=== PATIENT | female | born 1975 | race Hispanic/Latino ===

== ENCOUNTER 2025-01-03 06:26 | Day surgery (SDC) | payer OTHER, SELFPAY ==
[2024-12-29 10:37] VITALS: BMI 27.1
--- NOTE | 2025-01-03 | PATH_ITS ---
[facility] Accession Number: [id number] No. of containers..01 Tissue . 01 Material submitted: . uterus - UTERUS, BILATERAL FALLOPIAN TUBES . 01 Diagnosis: UTERUS AND BILATERAL FALLOPIAN TUBES, SUPRACERVICAL HYSTERECTOMY AND BILATERAL SALPINGECTOMY: Uterus with inactive to weakly proliferative endometrium and adenomyosis. Bilateral fimbriated fallopian tubes with benign paratubal cysts, otherwise unremarkable. Negative for malignancy. [facility] 01/07/2025 0947 Local . 01 Electronically signed: . Alie Aguayo DO, Pathologist NPI- [id number] . 01 Gross description: . Received in formalin with two identifiers and uterus, bilateral fallopian tubes, is a fragmented uterus (57 grams, 9.2 x 7.4 x 3.4 cm in aggregate), two unoriented fimbriated fallopian tubes (5.4 x 0.7 cm and 3.6 x 0.5 cm), with no cervix or additional adnexa. . The serosa is owen to violaceous with hemorrhagic areas up to 1.3 cm in greatest dimension. The presumed endometrium is owen and velvety, averaging less than 0.1 cm thick. The myometrium is owen and trabecular with no nodules or lesions identified. . The tubes have violaceous, smooth serosa with cystic structures up to 0.5 cm in greatest dimension filled with owen, serous fluid. The lumens are stellate and unremarkable. Crust Sorter sections are submitted as follows: . A1: Endometrium. A2: Serosa. A3: Longer fallopian tube. A4: [place] fallopian tube. ([id number]) /MRV 01/05/2025 1257 Local . 01 Pathologist provided ICD-10: N80.9 . 01 CPT . 310891 Specimen Comment: A courtesy copy of this report has been sent to [phone] Performed at: 01 [facility] [address], [place], [place] [id number] MD Anthony Torres MD Phone: [phone]
[2025-01-03] MEDS: LACTATED RINGERS 1,000 ML 42 ML IV ×2 (06:51→09:06)
[2025-01-03] MEDS: ACETAMINOPHEN 325 MG TABLET 975 MG PO (06:52)
[2025-01-03] MEDS: SCOPOLAMINE 1 PATCH TOP (06:52)
[2025-01-03 07:05] VITALS: BP 141/81; PULSE 63; RESP 16; TEMP 36.2; O2SAT 98; BMI 25.0
--- NOTE | 2025-01-03 07:52 | PM.GYNHP.1 ---
History of Present Illness History of Present Illness Reason for admission: vaginal bleeding Narrative: Jennifer Carbajal is a 49 year old female 3 para 2 who presents for a laparoscopic supracervical hysterectomy with bilateral salpingectomy due to menorrhagia, pelvic pain, and a history of endometriosis. [facility] Surgical History (Updated 10/21/17 @ 05:41 by Conversion Provider) History of third molar tooth extraction Status post laparoscopy (08/05/11) Social History household members: spouse Smoking Status: Never smoker alcohol intake: never Meds Home Medications and Allergies Home Medications ?Medication ?Instructions ?Recorded ?Confirmed ?Type No Known Home Medications 11/26/24 11/26/24 History Allergies Allergy/AdvReac Type Severity Reaction Status Date / Time adhesive Allergy rash Verified 01/03/25 06:49 Exam Vital Signs (past 8 hours): - 01/03/25 07:05 Temperature 97.2 F L Pulse Rate 63 Respiratory Rate 16 Blood Pressure 141/81 H Pulse Oximetry 98 Oxygen Delivery Method Room Air Oxygen Delivery Method Room Air Narrative Exam Narrative: HEENT: No thyromegaly, no anterior cervical or supraclavicular lymphadenopathy. Lungs:Clear to auscultation bilaterally, no wheezes. Cardiovascular: Regular rate and rhythm, no murmurs, rubs, or gallops. Abdomen: Well-healed Pfannenstiel scar. No hepatosplenomegaly. No masses palpable. External genitalia: Normal Vagina: Normal Cervix: Normal Bimanual exam: 8 Week size anteverted uterus. Mobile. Extremities: No edema Assessment & Plan Assessment & Plan narrative: Assessment: 49-year-old 3 para 2 with menorrhagia, pelvic pain, and a history of endometriosis Plan: Laparoscopic supracervical hysterectomy with bilateral salpingectomy The risks, benefits, and alternatives to the procedure were explained to the patient. The risks including bleeding, infection, injury to the bowel, bladder, or ureters. She also understands that there is a small chance of an open procedure. She understands all of these risks and agrees to proceed. A full par Q was held and consent form was signed. Time-Based Coding :: [TOTAL MINUTES] spent with patient and on the chart (including review of chart, obtaining history, exam, reviewing outside data, placing orders, documenting exam and treatment plan, and counseling patient) on [DATE].
--- NOTE | 2025-01-03 07:54 | PM.PREOP ---
Pre-operative Note Interval Note History & Physical reviewed/Exam performed by Physician: Yes Changes to H&P: No H&P completed within 30 days and has changed as indicated here:: 01/03/25
[2025-01-03] MEDS: CEFAZOLIN 2 GM/100 ML PREMIX 100 ML IV (08:09)
--- NOTE | 2025-01-03 08:43 | SUR.OPER ---
Lithotomy on padded OR bed. Hubbell Pad Positioner under torso. Head on pillow, arms padded and tucked at sides. purple straps across shoulders. Legs secured in padded yellow fins stirrups.
[2025-01-03] MEDS: BUPIVACAINE 0.5% W/ EPI (PF) 30 ML VIAL INJ (08:53)
[2025-01-03] MEDS: ROPIVACAINE 0.2% PF 2 MG/ML 10ML AMP 20 ML INJ (09:26)
--- NOTE | 2025-01-03 09:46 | PM.GYNOP.1 ---
Operative Date/Time/Diagnoses Date of procedure: 01/03/25 Time of procedure: 09:46 Pre-op diagnosis: Menorrhagia History of endometriosis Pelvic pain Post-op diagnosis: same Procedure & Clinicians Procedure: Procedures Operation Date: 01/03/25 07:45 Actual Procedure Side Surgeon p Laparoscopic Supracervical Hysterectomy with bilateral salpingectomy Not Applicable Yolanda Luther MD Indications: 49 year old with a known h/o endometriosis with pelvic pain and endometriosis Surgeon: Yolanda Luther Stockroom Supervisor: Mariela Engel Anesthesia Type: General and Local Operative Notes Findings: 8 week size anteverted uterus Adhesions of bilateral tubes Left ovary adhesed to the fundus of the uterus Small endometrioma of the left ovary Normal liver and gallbladder Normal appendix Endometrioma of the left ovary Right lower uterine segment fibroid Left colon adhesed to the posterior cervix Closure Type: primary Specimen(s): left tube, right tube and uterus Applied: catheter (Removed at the end of the case) Estimated blood loss (mL): 25 Blood products transfused: none Procedure in detail: The patient was taken to the operating room where she was placed in the dorsal supine position. After adequate general endotracheal anesthesia was achieved, she was placed in the dorsal lithotomy position, and prepped and draped in the usual sterile fashion. A timeout was performed. A bivalve speculum was placed into the vagina and the anterior lip of the cervix grasped with a single-tooth tenaculum. The cervical os was sequentially dilated until the ZUMI uterine manipulator could pass easily into the endometrial cavity. The single-tooth tenaculum was removed from the anterior lip of the cervix, and the bivalve speculum was removed from the vagina. Attention was then turned to the abdomen where 6 mL of half percent Marcaine with epinephrine were injected in the umbilical fold. A 5 mm incision was made. The Verees needle was placed into the peritoneal cavity, and its placement confirmed by aspiration and drop test. The Verees needle was removed. A 5 mm trocar was placed without difficulty. 2 other incisions were made 4 cm lateral to the umbilicus after 5 mL of half percent Marcaine with epinephrine were injected. These were 5 mm incisions. Two 5 mm trocars were placed under direct visualization. Balloons were inflated. The right tube was grasped with an atraumatic grasper. Using the Powerseal, the mesosalpinx was cauterized and cut all the way down to the cornua of the uterus. The cornua of the uterus was then grasped with an atraumatic grasper. The utero-ovarian ligaments were cauterized and cut. The round ligament and broad ligament was cauterized and cut with the Powerseal. Hemostasis was achieved. The bladder flap was created using the Powerseal with cautery and cut nursing home across. The uterine arteries on the right side were extensively cauterized with the Powerseal. On the left side the ovary was found to be adhesed to the tube and to the uterus. This was dissected off using the power seal. A small endometrioma ruptured with the dissection. The area was copiously irrigated. The tube was then grasped and the mesosalpinx was cauterized and cut with a power seal all the way down to the cornua of the uterus. The utero-ovarian vessels were then cauterized and cut. The left colon was stuck to the left cervix. This was dissected off using the blunt probe. The broad ligament and round ligament were cauterized and cut with a power seal. The remainder of the bladder flap was created using the power seal, and the bladder taken down off the lower uterine segment and cervix. Using the L[place], the cervix was amputated from the uterus 2 cm above the uterosacral ligaments, with care to avoid the bowel on the left side. This was all done after the ZUMI uterine manipulator was removed from the uterus and a moistened sponge stick placed into the vagina. There was a small amount of bleeding noted from the posterior edge of the cervix, and this was cauterized for hemostasis with the spatula cautery. The endocervical canal was extensively cauterized with the spatula cautery. 6 mL of half percent Marcaine with epinephrine were injected above the pubic symphysis. A 12 mm trocar was placed under direct visualization. A large Endobag was placed through the suprapubic trocar and the uterus and tubes were placed into the Endobag. The trocar was removed. The edges of the endobag were brought up through the skin. The fascial incision was extended bilaterally with the curved Munguia scissors. The uterus was grasped with Judah. The Zeus was placed into the endobag. The uterus was hand morcellated in approximately 10 pieces. The Endobag was removed from the peritoneal cavity with the Zeus. The fascia on the suprapubic incision was closed with 0 Vicryl in a running fashion. The abdomen was re-insufflated with carbon dioxide gas. The pelvis was copiously irrigated with warm normal saline. No bleeding was noted. 20 cc of 0.2% ropivacaine were placed into the pelvis over the pedicles. The instruments were removed from the abdomen. The CO2 was allowed to escape. Two simple interrupted sutures of 3-0 Vicryl were placed in the subcutaneous tissue on the suprapubic incision. All of the incisions were closed with 4-0 Monocryl in a subcuticular fashion. The moistened sponge stick was removed from the vagina. Sponge, lap, and instrument counts were correct x-2. The patient tolerated the procedure well, was taken to PACU in stable condition. Complications: none Post-operative Condition: stable Disposition: PACU Plan for aftercare: Home after recovery
[2025-01-03 09:47] VITALS: BP 134/58; PULSE 68; RESP 18; TEMP 36.2; O2SAT 96
[2025-01-03 09:52] VITALS: BP 134/58; PULSE 62; RESP 14; O2SAT 98
[2025-01-03 09:57] VITALS: BP 129/63; PULSE 62; RESP 12; O2SAT 98
[2025-01-03 10:02] VITALS: BP 138/65; PULSE 58; RESP 21; O2SAT 99
[2025-01-03] MEDS: OXYCODONE IR 5 MG TABLET PO (10:10)
[2025-01-03 10:21] VITALS: BP 140/70; PULSE 65; RESP 16; TEMP 36.2; O2SAT 98
== END 2025-01-03 11:05 | disposition home or self-care (01) ==
LOC: OR 06:28 → AC 06:32
PROVIDERS: Family Provider Physician Assistant; PCP Naturopath; Referring Provider Obstetrics & Gynecology; Visit Provider Obstetrics & Gynecology
PROC: 0UT94ZL Resection of Uterus, Supracervical, Percutaneous Endoscopic Approach (ICD-10-PCS; CPT 58542; principal; 2025-01-03 07:45)
DX: N92.0 Excessive and frequent menstruation with regular cycle (principal); N73.6 Female pelvic peritoneal adhesions (postinfective); N80.122 Deep endometriosis of left ovary; N80.03 Adenomyosis of the uterus; N83.8 Other noninflammatory disorders of ovary, fallopian tube and broad ligament
CPT/HCPCS: 58542; J0690; J1171; J2250; J2704; J2795; J3010; J3490